=== PATIENT | female | born 1980 | race Hispanic/Latino ===

== ENCOUNTER → 2019-02-03 | Outpatient (CLI) | payer OTHER ==
[~2019-02-03] MED LIST: IOPAMIDOL 370 MG/ML 200 ML INFUS..BTL INJ ONE; SODIUM CHLORIDE 0.9% 50ML 50 ML ONE
--- NOTE | 2019-02-03 17:22 | Diagnostic Imaging Report ---
Exam: CT chest Clinical history: Shortness of breath Technique: Helical images of the chest were obtained after IV contrast administration using the PE protocol Findings: There is no evidence of acute pulmonary embolism in the visualized pulmonary arteries. There is no evidence of pulmonary consolidation, pleural effusion, edema, or pneumothorax. The tracheobronchial tree is clear. The cardiac size is within normal limits. The great vessels are normal in caliber and orientation. There is no evidence of mediastinal or hilar lymphadenopathy. The upper abdominal solid organs are unremarkable. Impression: 1. No evidence of acute pulmonary embolism. Signed by: Dr. Tyson Siddiqui MD on 02/03/2019 5:19 PM
== END ==
LOC: CT 15:51
PROVIDERS: ATTEND Internal Medicine Cardiovascular Disease
DX: I27.82 Chronic pulmonary embolism (principal)
CPT/HCPCS: 71260; 81025; Q9967